=== PATIENT | female | born 1990 | race Caucasian/White ===

== ENCOUNTER 2019-03-15 23:25 | Emergency (ER) | payer SELFPAY ==
[~2019-03-15] VITALS: Ht 167.6 cm; Wt 114.0 kg
[2019-03-16 03:39] VITALS: BP 133/71
== END 2019-03-16 03:41 | disposition home or self-care (01) ==
LOC: ER 23:25
DX: I73.9 Peripheral vascular disease, unspecified (principal); L97.319 Non-pressure chronic ulcer of right ankle with unspecified severity
CPT/HCPCS: 99283